=== PATIENT | female | born 1960 | race Caucasian/White ===

== ENCOUNTER 2018-05-02 07:06 | Day surgery (SDC) | payer BC ==
[2018-05-02 08:19] LABS: ADD MAN DIFF? NO
[2018-05-02 08:20] LABS: BASOPHIL # 0.1 10^3/ul (0.0-0.1); BASOPHILS % 0.7 % (0.0-2.0); EOSINOPHILS # 0.4 10^3/ul (0.0-0.5); EOSINOPHILS % 4.7 % (0.0-7.0); HEMATOCRIT 40.1 % (37.0-47.0); HEMOGLOBIN 13.2 g/dl (12.0-16.0); LYMPHOCYTES # 2.2 10^3/ul (0.8-2.9); MEAN CORPUSCULAR HEMOGLOBIN 28.7 pg (29.0-33.0); MEAN CORPUSCULAR HGB CONC 32.9 g/dl (32.0-37.0); MEAN CORPUSCULAR VOLUME 87.2 fl (82.0-101.0); MEAN PLATELET VOLUME 9.2 fl (7.4-10.4); MONOCYTE # 0.6 10^3/ul (0.3-0.9); MONOCYTES % 6.4 % (0.0-11.0); NEUTROPHIL # 5.3 10^3/ul (1.6-7.5); NEUTROPHILS % 61.7 % (39.0-77.0); PLATELET COUNT 332 10^3/UL (140-415); RED CELL DISTRIBUTION WIDTH 14.2 % (11.5-14.5)
[2018-05-02 08:20] LABS: WHITE BLOOD COUNT 8.5 10^3/ul (4.8-10.8)
[2018-05-02 08:37] LABS: ANION GAP 16 (5-13); BLOOD UREA NITROGEN 12 mg/dl (7-20); CALCIUM 9.6 mg/dl (8.4-10.2); CARBON DIOXIDE 25 mmol/L (21-31); CHLORIDE 99 mmol/L (97-110); CHOL/HDL RATIO 3.6 RATIO; CHOLESTEROL 161 mg/dl (100-200); Estimated GFR > 60 mL/min (>60); GLUCOSE 171 mg/dl (70-220); HDL CHOLESTEROL 44 mg/dl (35-98); LDL CHOLESTEROL,CALCULATED 89 mg/dl; POTASSIUM 3.6 mmol/L (3.5-5.1); SODIUM 140 mmol/L (135-144); TRIGLYCERIDES 140 mg/dl (0-149)
[2018-05-02 08:39] LABS: INR 0.88; PT RATIO 0.9
[2018-05-02 08:43] LABS: CREATININE 0.43 mg/dl (0.44-1.00)
[2018-05-02] MEDS ORDERED: SOD CHLORIDE 0.45% 1,000 ML IV (09:00)
[2018-05-02] MEDS ORDERED: HEPARIN 1000 UNITS/ML 10 ML INJ (09:17)
[2018-05-02] MEDS ORDERED: FENTAnyl 50 MCG/ML VIAL (09:17)
[2018-05-02] MEDS ORDERED: VERAPAMIL 5 MG INJ (09:17)
[2018-05-02] MEDS ORDERED: DIPHENHYDRAMINE 50 MG INJ (09:17)
[2018-05-02] MEDS ORDERED: IODIXANOL LOCM 100 ML BTL (09:17)
[2018-05-02] MEDS ORDERED: MIDAZOLAM 1 MG/ML 2 ML INJ (09:17)
[2018-05-02] MEDS ORDERED: LIDOCAINE 1% (MDV) 20 ML INJ (09:17)
[2018-05-02] MEDS ORDERED: METHYLPREDNISOLONE 125 MG INJ (09:18)
[2018-05-02] MEDS ORDERED: NITROGLYCERIN (IC) 100 MCG/ML INJ (09:18)
[2018-05-02] MEDS: METHYLPREDNISOLONE 125 MG INJ IV (09:30)
[2018-05-02] MEDS: DIPHENHYDRAMINE 50 MG INJ IV (09:30)
[2018-05-02] MEDS: FAMOTIDINE 20 MG INJ IV (09:30)
[2018-05-02] MEDS ORDERED: AL HYDROX/MG HYDROX/SIMETH 30 ML CUP PO (10:30)
[2018-05-02] MEDS ORDERED: morphine 2 MG INJ IV (10:30)
[2018-05-02] MEDS ORDERED: ACETAMINOPHEN 325 MG TAB PO (10:30)
[2018-05-02] MEDS ORDERED: ONDANSETRON 4 MG INJ IV (10:30)
[2018-05-02] MEDS: SOD CHLORIDE 0.9% 1,000 ML IV (11:02)
== END 2018-05-02 14:15 | disposition home or self-care (01) ==
LOC: SDS 07:06
DX: I25.10 Atherosclerotic heart disease of native coronary artery without angina pectoris (principal); I10 Essential (primary) hypertension; E11.9 Type 2 diabetes mellitus without complications; J45.909 Unspecified asthma, uncomplicated
CPT/HCPCS: 71045; 80048; 80061; 82962; 85025; 85610; 85730; 93005; 93458